=== PATIENT | male | born 1970 | race Caucasian/White ===

== ENCOUNTER → 2019-08-23 | Outpatient (CLI) | payer BC ==
[~2019-08-23] MED LIST: ISOM1CAP
--- NOTE | 2019-08-23 13:27 | Diagnostic Imaging Report ---
PROCEDURE: CT abdomen and pelvis without contrast. TECHNIQUE: Multiple contiguous axial images were obtained through the abdomen and pelvis without the use of intravenous contrast. Auto Exposure Controls were utilized during the CT exam to meet ALARA standards for radiation dose reduction. INDICATION: Left upper quadrant abdominal pain Unenhanced images of the liver, gallbladder, pancreas, adrenal glands and spleen are unremarkable. Note is made of an approximately 0.4 cm calculus in the midportion of the left kidney. 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 There is no evidence of hydronephrosis or hydroureter. A moderate amount of stool is present in the right colon. There is gaseous distention of transverse and descending colon. Evaluation of the sigmoid colon is limited secondary to decompression and absence of contrast. There is no evidence of localized inflammation. The appendix is not definitely visualized however there is no evidence of fluid collection or inflammation in the right lower quadrant. Unopacified bladder is unremarkable. IMPRESSION: No acute abnormality is identified. There is a moderate amount of stool and gas throughout the colon to the level of the lower descending colon. No site of obstruction is identified. There is an approximately 0.4 cm nonobstructing calculus in the midportion of the left kidney. Report given (and fax) to Billy Cottrell APRN, at 1:24 p.m. 08/23/2019/gene Dictated by: Dictated on workstation # [id number]
== END ==
LOC: RAD 12:14
PROVIDERS: ATTEND Nurse Practitioner Family
DX: N20.0 Calculus of kidney (principal); K63.89 Other specified diseases of intestine
CPT/HCPCS: 74176